=== PATIENT | male | born 1955 | race Caucasian/White ===

== ENCOUNTER 2017-03-22 14:57 | Outpatient (CLI) | payer OTHER ==
[~2017-03-22] VITALS: Ht 185.4 cm; Wt 93.9 kg
[~2017-03-22 14:57] MED LIST: ASPI-999 PO; ASPI81TA57 PO; ATOR40TA70 PO; CYCL10TA9 PO; EZET10TA23 PO; HYDR-3820 PO; IRON150C3 PO; NAPR1TAB25 PO; NAPR220T66 PO; SIMV20TA3 PO; TRAM50TA2 PO
[2017-03-22 15:03] VITALS: BP 146/91
== END 2017-03-22 15:15 | disposition home or self-care (01) ==
LOC: PREOP 14:57
PROVIDERS: ATTEND Podiatrist Foot & Ankle Surgery
DX: Z01.818 Encounter for other preprocedural examination (principal); Z11.2 Encounter for screening for other bacterial diseases; M20.12 Hallux valgus (acquired), left foot; M89.372 Hypertrophy of bone, left ankle and foot; M20.42 Other hammer toe(s) (acquired), left foot
CPT/HCPCS: 87081

== ENCOUNTER 2017-04-14 06:00 | Day surgery (SDC) | payer OTHER ==
--- NOTE | 2017-03-23 14:38 | HISTORY AND PHYSICAL ---
DATE OF SERVICE: DATE OF ADMISSION: Not sure REFERRING PHYSICIAN: Dr. Barbosa HISTORY OF PRESENT ILLNESS: The patient is a 61-year-old white male seen for evaluation in the office on 03/22/2017 for preoperative evaluation. He has increasingly symptomatic left first MTP arthropathies/bunion and a significant second hammertoe deformity for which he is scheduled per Dr. Barbosa for repair. He reports otherwise he feels well. He has no past cardiovascular or pulmonary history. 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 He voices no complaints. PAST MEDICAL HISTORY: Significant for hyperlipidemia for which he takes atorvastatin with no known history for cardiovascular disease. For osteoarthritis of the right hip. He underwent uneventful total hip replacement in September of 2015. In November 2015, he had a laparoscopic removal of a large complex left renal cyst which turned out to be benign. Has had no subsequent problems with flank pain or hematuria, grossly or microscopic. 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 SOCIAL HISTORY: He is with children with history of social alcohol intake and no past history for smoking. He is a salesman for [employer]. MEDICATIONS ON ADMISSION: Include atorvastatin 40 mg daily. He is on no other prescription medication. PHYSICAL EXAMINATION: GENERAL: Reveals a well appearing white male in no acute distress. VITAL SIGNS: Weight 207 pounds was stable. Initial blood pressure 140/90, but at the end of the interview was down to 128/86. NECK: Revealed no JVD, adenopathy or bruits. CHEST: Clear. CARDIOVASCULAR: Regular rate and rhythm without murmur, S3 or S4. EXTREMITIES: Reveal no cyanosis, clubbing or edema. Dorsalis pedis pulses are 2+ and symmetrical. ASSESSMENT: There are no medical contraindications for proceeding with planned bunion surgery of the left first MTP and hammertoe release of the left second toe. Job ID: [id number] DocumentID: [id number] Dictated Date: 03/23/2017 10:15:32 Supervisor [employer] Date: 03/23/2017 11:08:04 Dictated By: JUANA HENAO MD MTDD
[~2017-04-14] VITALS: Ht 185.4 cm; Wt 93.9 kg
--- OUTSIDE RECORDS SUMMARY | 2017-04-14 06:10 | XMS REPORT | Continuity of Care Document ---
Author Author [facility] Organization [facility] Address Unknown Phone Unavailable Allergies Active Description Code Type Severity Reaction Onset Reported/Identified Relationship to Patient Clinical Status Yes No Known Drug Allergies [id number] Drug Allergy Unknown N/A 09/23/2015 Medications There is no data. Problems Date Dx Coded Attending Type Code Diagnosis Diagnosed By 03/26/2014 EARLENE MENJIVAR, JUANA Guzman Ot V72.84 03/26/2014 EARLENE MENJIVAR, JUANA Guzman Ot V72.84 03/26/2014 JUANA HENAO MD Ot V72.84 03/27/2014 EARLENE MENJIVAR, JUANA Guzman Ot 211.3 03/27/2014 EARLENE MENJIVAR, JUANA Guzman Ot 562.10 03/27/2014 EARLENE MENJIVAR, JUANA Guzman Ot V76.51 09/23/2015 TAIWO CHEATHAM DO Ot M16.11 UNILATERAL PRIMARY OSTEOARTHRITIS, RIGHT 09/23/2015 CHAPARRITA TAIWO DENNIS Ot Z01.810 ENCOUNTER FOR PREPROCEDURAL CARDIOVASCUL 09/23/2015 CHAPARRITATAIWO SMITH DO Ot Z01.811 ENCOUNTER FOR PREPROCEDURAL RESPIRATORY 09/23/2015 TAIWO CHEATHAM DO Ot Z01.812 ENCOUNTER FOR PREPROCEDURAL LABORATORY E 09/23/2015 TAIWO CHEATHAM DO Ot Z11.2 ENCOUNTER FOR SCREENING FOR OTHER BACTER 09/25/2015 TAIWO CHEATHAM DO Ot M16.11 UNILATERAL PRIMARY OSTEOARTHRITIS, RIGHT 09/25/2015 CHAPARRITA DOTAIWO Ot Z01.810 ENCOUNTER FOR PREPROCEDURAL CARDIOVASCUL 09/25/2015 TAIWO CHEATHAM DO Ot Z01.811 ENCOUNTER FOR PREPROCEDURAL RESPIRATORY 09/25/2015 TAIWO CHEATHAM DO Ot Z01.812 ENCOUNTER FOR PREPROCEDURAL LABORATORY E 09/25/2015 TAIWO CHEATHAM DO Ot Z11.2 ENCOUNTER FOR SCREENING FOR OTHER BACTER 10/10/2015 TAIWO CHEATHAM DO Ot E78.0 PURE HYPERCHOLESTEROLEMIA 10/10/2015 TAIWO CHEATHAM DO Ot M16.11 UNILATERAL PRIMARY OSTEOARTHRITIS, RIGHT 11/27/2015 UJANA HENAO MD, Ot N28.1 CYST OF KIDNEY, ACQUIRED 11/27/2015 JUANA HENAO MD, Ot R91.1 SOLITARY PULMONARY NODULE 11/28/2015 JUANA HENAO MD, Ot N28.1 CYST OF KIDNEY, ACQUIRED 11/28/2015 JUANA HENAO MD Ot R91.1 SOLITARY PULMONARY NODULE 12/06/2015 JUANA HENAO MD, Ot N28.1 CYST OF KIDNEY, ACQUIRED 01/15/2016 JUANA HENAO MD, Ot N28.1 CYST OF KIDNEY, ACQUIRED 01/15/2016 JUANA HENAO MD, Ot R91.1 SOLITARY PULMONARY NODULE 07/30/2016 JUANA HENAO MD, Ot N28.1 CYST OF KIDNEY, ACQUIRED 07/30/2016 JUANA HENAO MD, Ot R91.1 SOLITARY PULMONARY NODULE 07/30/2016 JUANA HENAO MD Ot N28.1 CYST OF KIDNEY, ACQUIRED 07/30/2016 JUANA HENAO MD, Ot N28.1 CYST OF KIDNEY, ACQUIRED 07/30/2016 JUANA HENAO MD, Ot R91.1 SOLITARY PULMONARY NODULE 07/30/2016 JUANA HENAO MD, Ot N28.1 CYST OF KIDNEY, ACQUIRED 09/02/2016 JUANA HENAO MD, Ot N28.1 CYST OF KIDNEY, ACQUIRED 09/02/2016 JUANA HENAO MD Ot R91.1 SOLITARY PULMONARY NODULE 09/02/2016 JUANA HENAO MD Ot N28.1 CYST OF KIDNEY, ACQUIRED Procedures Code Description Performed By Performed On [id number] REPLACE OF R HIP JT WITH SYNTH SUB, [facility] 10/08/2015 Results Test Result Range [id number] - 11/26/15 10:17 Serum or plasma urea nitrogen measurement (mass/volume) 11 mg/dL 7-18 Serum or plasma creatinine measurement (mass/volume) 0.82 mg/dL 0.60-1.30 Serum or plasma urea nitrogen/creatinine mass ratio 13 NRG Serum or plasma creatinine measurement with calculation of estimated glomerular filtration rate > NRG Methicillin resistant Staphylococcus aureus (MRSA) screening culture - 15:10 Methicillin resistant Staphylococcus aureus (MRSA) screening culture NEG NRG Encounters ACCT No. Visit Date/Time Discharge Status Pt. Type Provider Facility Loc./Unit Complaint [id number] 03/22/2017 14:57:00 03/22/2017 23:59:59 CLS Outpatient FREDY DPM, GABRIELLE Q [facility] PREOP HALLUX RIGIDUS; HAMMERTOE LEFT FOOT [id number] 12/04/2015 16:03:00 12/04/2015 23:59:59 CLS Outpatient JUANA HENAO MD [facility] RAD L KIDNEY CYST [id number] 11/26/2015 10:09:00 11/26/2015 23:59:59 CLS Outpatient JUANA HENAO MD [facility] RAD L PULMONARY NODULE [id number] 10/08/2015 06:13:00 10/10/2015 10:13:00 DIS Inpatient TAIWO CHEATHAM DO [facility] 4TH OSTEOARTHRITIS [id number] 09/23/2015 09:00:00 09/23/2015 11:13:00 DIS Outpatient TAIWO CHEATHAM DO [facility] PREOP OSTEOARTHRITIS [id number] 03/27/2014 07:13:00 03/27/2014 23:59:59 CLS Outpatient JUANA HENAO MD [facility] [id number] 03/22/2014 11:48:00 03/22/2014 23:59:59 CLS Outpatient JUANA HENAO MD [facility] PREOP [id number] 04/16/2017 11:30:00 PEN Preadmit FREDY DPM, GABRIELLE Q [facility] HALLUX RIGIDUS; HAMMERTOES LEFT FOOT
--- OUTSIDE RECORDS SUMMARY | 2017-04-14 06:10 | XMS REPORT | Clinical Summary ---
Author Author [facility] Organization [facility] Address Unknown Phone Unavailable Care Team Providers Care Steeple Jack Name Role Phone PCP Unavailable Source Comments Some departments are not documenting in the electronic medical record. If you do not see the information that you expected, contact Release of Information in the Health Information Management department at [phone] for further assistance in locating additional records.[facility] Allergies No Known Allergies Current Medications Prescription Sig. Disp. Refills Start End Date Status Date NAPROXEN SODIUM (ALEVE Take by mouth. Active PO) vitamins, B complex tab Take 1 Tab by mouth Active daily. ACETAMINOPHEN (TYLENOL Take by mouth as Needed. Active PO) aspirin EC 81 mg tablet Take 81 mg by mouth Active daily. Take with food. cyclobenzaprine Take 10 mg by mouth three Active (FLEXERIL) 10 mg tablet times daily as needed for Muscle Cramps. atorvastatin (LIPITOR) 40 Take 40 mg by mouth Active mg tablet daily. senna/docusate Take 1 Tab by mouth twice 30 Tab 0 02/15/20 Active (SENOKOT-S) 8.6/50 mg daily. While taking pain 16 tablet pills HYDROcodone/acetaminophen Take 1-2 Tabs by mouth 30 Tab 0 02/15/20 Active (NORCO) 5-325 mg tablet every 4 hours as needed 16 for Pain Earliest Fill Date: 02/15/16 levoFLOXacin (LEVAQUIN) Take 1 Tab by mouth 5 Tab 0 02/16/20 Active 500 mg tablet daily. 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 Appears separate from left kidney, but possibly related to ureter. Overall inadequately imaged on outside scans. 02/14/16: Left robotic retroperitoneal cyst excision. Final pathology: Final Diagnosis: A. Squamous mucosa and soft tissue, "left retroperitoneal cyst wall", resection: Benign squamous-lined cyst with a thick wall showing fibrosis and microcalcifications. Reactive changes are present with foreign body giant cell reaction. There is no evidence of malignancy. Last Assessment & Plan: Patient doing well and recovering well. Pathology discussed with the patient who expressed understanding. A copy was given to the patient. The mass did extensively alter the course of the ureter, so I have recommended that he folow-up in 6 months for a repeat ultrasound and assessment. Patient agrees. -- May start to increase physical activity -- Copy of pathology given to patient -- All questions answered -- Warnings given to patient who expressed understanding -- F/U 6 months with renal ultrasound and labs prior Immunizations Name Dates Previously Given Next Due Flu Vaccine 02/15/2016 Quadrivalent=>3 Yo (Preservative Free) Family History Medical History Relation Name Comments Diabetes Father Heart Attack Father Heart Disease Father Hypertension Father Diabetes Mother Hypertension Mother Relation Name Status Comments Father Mother Social History Tobacco Use Types Packs/Day Years Used Date Never Smoker Smokeless Tobacco: Never Used Alcohol Use Drinks/Week oz/Week Comments Yes 0 Standard 0.0 socially drinks or equivalent Sex Assigned at Date Recorded Not on file Last Filed Vital Signs Vital Sign Reading Time Taken Blood Pressure 142/91 03/05/2016 3:23 PM [employer] Pulse 93 03/05/2016 3:23 PM [employer] Temperature 36.5 C (97.7 F) 02/15/2016 10:59 AM CDT Respiratory Rate - - Oxygen Saturation 97% 02/15/2016 10:59 AM CDT Inhaled Oxygen - - Concentration Weight 89.7 kg (197 lb 12.8 oz) 03/05/2016 3:23 PM [employer] Height 185.4 cm (6' 1") 03/05/2016 3:23 PM [employer] Body Mass Index 26.1 03/05/2016 3:23 PM [employer] Plan of Treatment Health Maintenance Due Date Last Done Comments HEPATITIS C SCREENING 1955 PHYSICAL (COMPREHENSIVE) 08/28/1963 EXAM PERTUSSIS VACCINE 08/28/1967 TETANUS VACCINE 1973 COLORECTAL CANCER 2006 SCREENING SHINGLES VACCINE 2016 INFLUENZA VACCINE 11/17/2016 02/15/2016 Results Not on filefrom Last 3 Months
[2017-04-14] MEDS ORDERED: CYCL5TAB PO (06:41)
[2017-04-14] MEDS: LACTATED RINGERS 1,000 ML IV PRN ×2 (06:42→09:35)
[2017-04-14 06:44] VITALS: BP 134/96
[2017-04-14] MEDS ORDERED: ceFAZolin INJECTION 1,000 MG in NS (IVPB) 50 ML IV ONE (06:45)
[2017-04-14] MEDS ORDERED: fentaNYL INJECTION 100 MCG/2 ML AMP ONE (07:00)
[2017-04-14] MEDS ORDERED: LIDOCAINE JELLY 2% (XYLOCAINE) 5 ML TUBE ONE (07:27)
[2017-04-14] MEDS ORDERED: MIDAZOLAM 2 MG/2 ML (VERSED) VIAL ONE (07:27)
[2017-04-14] MEDS ORDERED: ROCURONIUM 50 MG/5 ML (ZEMURON) VIAL IV ONE (07:27)
[2017-04-14] MEDS ORDERED: ONDANSETRON 4 MG/2 ML (SDV) Z0FRAN ONE (07:27)
[2017-04-14] MEDS ORDERED: LACTATED RINGERS 1,000 ML IV ONE (07:27)
[2017-04-14] MEDS ORDERED: LIDOCAINE PF 2% 5 ML (XYLOCAINE) VIAL ONE (07:27)
[2017-04-14] MEDS ORDERED: proPOfol 200 MG/20 ML (DIPRIVAN) VIAL IV ONE (07:27)
--- NOTE | 2017-04-14 07:32 | Progress Note-Pre Operative ---
Pre-Operative Progress Note H&P Reviewed The H&P was reviewed, patient examined and no changes noted. Date Seen by Provider: Apr 14, 2017 Time Seen by Provider: 07:31 Date H&P Reviewed: Apr 14, 2017 Time H&P Reviewed: 07:31 Pre-Operative Diagnosis: Hallux Valgus, Hammertoe 2nd, Hypertrophic 2nd metatarsal, all left GABRIELLE DANIEL DPM Apr 14, 2017 7:32 am
[2017-04-14] MEDS ORDERED: BUPIVACAINE 0.5% 30 ML (SENSORCAINE) VIAL ONE (08:15)
[2017-04-14] MEDS ORDERED: DEXAMETHASONE 10 MG/ML (DECADRON) 1 ML VIAL ONE (08:15)
[2017-04-14] MEDS ORDERED: PHENYLEPHRINE 100 MCG/ML 10 ML (ANESTHESIA) SYR ONE (09:00)
[2017-04-14] MEDS ORDERED: SEVOFLURANE (ULTANE) 15 ML INHAL SOLN ONE (09:00)
[2017-04-14] MEDS ORDERED: HYDROcodone/APAP 5 MG/325 MG (LORTAB) TAB PO PRN (09:30)
[2017-04-14] MEDS ORDERED: ONDANSETRON 4 MG/2 ML (SDV) Z0FRAN IVP PRN ×2 (09:30→09:45)
[2017-04-14] MEDS ORDERED: LACTATED RINGERS 1,000 ML IV SCH (09:30)
--- NOTE | 2017-04-14 09:30 | Progress Note-Post Operative ---
Post-Operative Progess Note Surgeon (s)/Rocket Engine Tester (s) Surgeon GABRIELLE DANIEL DPM Rocket Engine Tester: none Pre-Operative Diagnosis Hallux Valgus, Hammertoe 2nd, Hypertrophic 2nd metatarsal, all left Post-Operative Diagnosis same Procedure & Operative Findings Date of Procedure 04/14/17 Procedure Performed/Findings Modified Pawan-Ronny bunionectomy, Reduction of 2nd Hammertoe, 2nd Metatarsal Osteotomy, all left Anesthesia Type General Estimated Blood Loss Estimated blood loss (mL): Minimal Specimens/Packing Specimens Removed None GABRIELLE DANIEL DPM Apr 14, 2017 09:30
[2017-04-14] MEDS ORDERED: ACHD5005 PO (09:34)
[2017-04-14] MEDS ORDERED: CEPH500C PO (09:34)
[2017-04-14] MEDS ORDERED: MEPERIDINE (DEMEROL) INJ 50 MG/ML IVP PRN (09:45)
[2017-04-14] MEDS ORDERED: morphine INJ 10 MG/ML 1ML (SYR OR VIAL) IVP PRN (09:45)
[2017-04-14 10:20] VITALS: BP 129/95
[2017-04-14 10:50] VITALS: BP 143/102
--- NOTE | 2017-04-14 10:53 | Diagnostic Imaging Report ---
EXAMINATION: Two views of the left foot. INDICATION: Postoperative evaluation. FINDINGS: There are osteotomies with internal fixation involving the neck of the first and second metatarsals and the proximal phalanx of the great toe. There is also an osteotomy at the head of the proximal phalanx of the second toe and a fusion K wire through the interphalangeal joints. The bone alignment is satisfactory. Calcaneal spurs are seen. IMPRESSION: Postoperative changes in the great and second toes in good alignment. Dictated by: Dictated on workstation # [id number]
[2017-04-14 11:20] VITALS: BP 148/102
[2017-04-14 11:30] VITALS: BP 148/102
--- NOTE | 2017-04-14 16:23 | OPERATIVE REPORT ---
DATE OF SERVICE: 04/14/2017 SURGEON: Josselyn Barbosa DPM PREOPERATIVE DIAGNOSES: 1. Hallux abductovalgus metatarsus primus varus, left. 2. Hypertrophic second metatarsal, left. 3. Hammer digit syndrome, left second toe. POSTOPERATIVE DIAGNOSES: 1. Hallux abductovalgus metatarsus primus varus, left. 2. Hypertrophic second metatarsal, left. 3. Hammer digit syndrome, left second toe. PROCEDURE: 1. Modified Pawan-Ronny bunionectomy, left. 2. Second metatarsal osteotomy with screw fixation. 3. Reduction of hammertoe, left second digit. WOUND CLASS: Clean. ANESTHESIA: General. HEMOSTASIS: Pneumatic thigh tourniquet at 300 mmHg. INDICATIONS: This is a 61-year-old male who presents complaining of painful bunion and hammertoe, left foot. Conservative therapy has met with unsatisfactory results and the patient is agreeable to surgical intervention after risks and complications were discussed at length. No guarantees were extended to the patient and he is willing to proceed. DESCRIPTION OF PROCEDURE: The patient was brought back to the operating table, placed in secure supine position. The general anesthetic was then induced. Appropriate timeout was performed. The left foot was then prepped and draped in normal sterile manner after a tourniquet was applied to the left lower extremity over several layers of padding. The left foot was then elevated and allowed to exsanguinate, after which the tourniquet was inflated to 300 mmHg. Attention was then directed to the dorsal aspect of the left first metatarsophalangeal joint where a 6 cm longitudinal linear incision was created. The incision was deepened in the same plane with great care to identify and retract all vital neurovascular structures. When necessary, blood vessels were cauterized as encountered. The incision was deepened down to the capsular tissue where a longitudinal capsulotomy was performed. Capsular tissue was reflected mediolaterally exposing the hypertrophic medial eminence of the first metatarsal head, which was resected utilizing power sagittal saw. Next, blunt dissection was carried out into the first intermetatarsal space where a lateral release was performed. The conjoint tendon of the adductor hallucis was released as well as a lateral capsulorrhaphy and a fibular sesamoidal ligament release was performed. The hallux was then forcibly adducted releasing any additional fibers holding it in its abnormal position. Attention was redirected to the medial aspect of the first metatarsal where a Chevron-type osteotomy was performed allowing the capital fragment to translocate laterally and was fixated in its corrected position with a 0.062 threaded K-wire driven from dorsal proximal to plantar distal across the osteotomy. The wound was flushed with copious amounts of normal saline and the head of the first metatarsal was further contoured and smoothed with a power sagittal saw and power janelle. Excellent range of motion was appreciated at the left first metatarsophalangeal joint. There still remained some lateral deviation with the hallux and it was then decided that an Ronny type osteotomy was then to be performed. Subperiosteal dissection was carried out to the diaphysis of the proximal phalanx of the left hallux. Next, a power sagittal saw was utilized to create a wedge of bone resection with the base medial and lateral cortices held intact. Once the wedge of bone was resected and the gap closed, good realignment of the left hallux was appreciated. Two missile control pilot holes were created at the dorsal medial aspect of the osteotomy allowing a 28-gauge monofilament wire to pass through the missile control pilot holes securing the osteotomy in a closed position. Excellent bony apposition and fixation was appreciated. At this time, the wound was flushed with copious amounts of normal saline and closure was then performed in layers. Deep closure was performed with 3-0 Vicryl, superficial with 4-0 Vicryl, skin closed with 4-0 Prolene in a horizontal mattress type stitch. Attention was then directed to dorsal aspect of left second ray where a 5 cm longitudinal linear incision was created from the distal diaphysis of the second metatarsal to the distal interphalangeal joint of the left second toe. The incision was deepened in the same plane with great care to identify and retract all vital neurovascular structures. All the necessary blood vessels were cauterized as encountered. The incision was deepened down to the capsule and extensor tendon. A Z slide lengthening of the extensor tendon overlying the proximal phalanx was performed allowing the extensor tendon to be reflected proximally and distally. Release of the extensor alicia was performed over the metatarsophalangeal joint area exposing the second metatarsophalangeal joint where a dorsal capsulorrhaphy and a release of the medial lateral collateral ligaments were performed. This allowed the proximal phalanx to come down into rectus alignment. Next, a Lucio type osteotomy was then performed. The capital fragment was translocated proximally and fixated in its corrected position utilizing a 2.0 snap-off screw of 12 mm in length. Excellent bony apposition fixation was appreciated at this time. The remaining head of the second metatarsal was further contoured and smoothed with a rongeur and hand rasp. The wound was flushed once again with normal saline. Attention was then directed to the left second toe where hammertoe reduction was performed. The medial and lateral collateral ligaments as well as the dorsal capsulorrhaphy was performed to the proximal interphalangeal joint. The head of the proximal phalanx was fashioned into a peg with power sagittal saw and a power bur and a hole was created to the base of the middle phalanx with the power bur. Next, a 0.054 threaded K-wire was passed through the left second digit holding the digit in a rectus alignment. The end of the K-wire was cut and a protective ball placed over the wire. The wound was flushed with copious amounts of normal saline. Closure was then performed in layers. Deep closure was performed with 3-0 Vicryl, superficial with 4-0 Vicryl, skin closure with 4-0 Prolene in a horizontal mattress type stitch. Postoperative injection consisted of 20 mL of 0.5% Marcaine injected in a local infusion to the surgical site with additional 10 mg of dexamethasone injected into the first intermetatarsal space, left foot. Tourniquet was released noting appropriate capillary refill time to all digits of the left foot. Postoperative dressing consisted of Betadine soaked Adaptic, sterile 4 x 4, sterile Kerlix all secured with a Coban wrap. The patient tolerated the anesthesia and procedure well, was transported from the operating room to the recovery area with vital signs stable and vascular status intact to all digits of the left foot. The patient is to follow up in my office in 10 days' period of time or sooner if necessary. He is to be nonweightbearing to the left forefoot with heel contact only. I will see the patient sooner if necessary. Job ID: [id number] DocumentID: [id number] Dictated Date: 04/14/2017 09:42:32 [employer] Driver Date: 04/14/2017 16:23:03 Dictated By: FAIZA QUIROZ
== END 2017-04-14 11:30 | disposition home or self-care (01) ==
LOC: SDC 06:00
PROVIDERS: ATTEND Podiatrist Foot & Ankle Surgery
DX: M20.42 Other hammer toe(s) (acquired), left foot (principal); M20.12 Hallux valgus (acquired), left foot; M89.372 Hypertrophy of bone, left ankle and foot; Z11.2 Encounter for screening for other bacterial diseases; E78.5 Hyperlipidemia, unspecified; M16.11 Unilateral primary osteoarthritis, right hip; Z85.828 Personal history of other malignant neoplasm of skin; Z79.899 Other long term (current) drug therapy
CPT/HCPCS: 73620

== ENCOUNTER → 2021-01-21 | Outpatient (CLI) | payer OTHER ==
[~2021-01-21] MED LIST changes: +ACET500P24 PO; +ACHD5005 PO; +ACHYD1T PO; +CEPH500C PO; +CYCL5TAB PO; -HYDR-3820 PO; -TRAM50TA2 PO; +TRM50T PO
--- NOTE | 2021-01-21 16:54 | Diagnostic Imaging Report ---
PROCEDURE: US carotid duplex, bilateral. TECHNIQUE: Multiple real-time grayscale images were obtained over the carotid arteries in various projections, bilaterally. Additional spectral analysis and color Doppler duplex images were also obtained. INDICATION: Right retinal artery embolism, vascular calcifications. COMPARISON: None available. FINDINGS: Peak systolic velocities within the bilateral common carotid arteries are elevated at just above 150 cm/s. However, the peak systolic velocities within the bilateral internal carotid arteries and external carotid arteries are within normal limits. Additionally, the bilateral internal carotid artery to common carotid artery ratios are within normal limits. Antegrade flow within the bilateral vertebral arteries. IMPRESSION: No evidence of hemodynamically significant stenosis. Antegrade flow within the bilateral vertebral arteries. Increased velocities within the bilateral common carotid arteries, which can be seen with hypertension. Parameters based on the consensus panel Villegas-Scale and Doppler ultrasound criteria published February 2003, Radiology, Volume 229. DOPPLER (peak systolic velocity M/S Right Left CCA 1.5 1.4 ICA Proximal .81 .81 ICA Mid .78 .46 ICA Distal .63 .85 RATIO .53 .60 ECA 1.1 1.2 VERT .73 .66 Dictated by: Dictated on workstation # [id number]
== END ==
LOC: RAD 14:30
PROVIDERS: ATTEND Internal Medicine
DX: H34.9 Unspecified retinal vascular occlusion (principal); I10 Essential (primary) hypertension
CPT/HCPCS: 93880

== ENCOUNTER 2021-01-24 05:34 | Outpatient (CLI) | payer OTHER ==
[~2021-01-24] VITALS: Ht 185.5 cm; Wt 95.3 kg
[~2021-01-24 05:34] MED LIST changes: -ACET500P24 PO
[2021-01-24] MEDS ORDERED: ACET500P24 PO (14:03)
[2021-01-24] MEDS ORDERED: NAPR1TAB25 PO (14:03)
== END 2021-01-27 08:53 | disposition home or self-care (01) ==
LOC: PREOP 05:34
PROVIDERS: ATTEND Internal Medicine
DX: Z01.818 Encounter for other preprocedural examination (principal)

== ENCOUNTER → 2021-01-29 | Outpatient (CLI) | payer OTHER ==
[~2021-01-29] MED LIST changes: +ACET500P24 PO; +LOSA1TAB23 PO; +LOSA50TA63 PO
== END ==
LOC: CARD 14:30
PROVIDERS: ATTEND Internal Medicine
DX: I51.7 Cardiomegaly (principal); H34.9 Unspecified retinal vascular occlusion
CPT/HCPCS: 93306

== ENCOUNTER 2021-01-31 09:34 | Day surgery (SDC) | payer OTHER ==
--- NOTE | 2021-01-24 08:46 | HISTORY AND PHYSICAL ---
DATE OF SERVICE: COLONOSCOPY HISTORY AND PHYSICAL DATE OF ADMISSION: 01/31/2021. HISTORY OF PRESENT ILLNESS: The patient is a 65-year-old white male, who came in for evaluation of right branch retinal artery occlusion. He has had no known history of coronary artery disease or past thromboembolic disease and no known previous history of CVA. He reports that he had been feeling well, but updating family history, his brother and his brother's son were both diagnosed with colon cancer; the son in 40s, brother in his 50s. It has been seven years since the patient's last colonoscopy, at which time, one tubular adenoma was removed from the proximal ascending colon and one from the mid sigmoid colon. For this reason, he is being set up for screening colonoscopy. The patient has no past smoking or drinking history and has been feeling well. He noted some blurring to his vision on the right, a little over a month ago that he attributed to cataracts, but went to see his registered midwife, who noted the retinal occlusion. PHYSICAL EXAMINATION: GENERAL: Revealed a white male, appeared to be in no acute distress. HEENT: Unremarkable. NECK: Revealed no JVD, adenopathy or bruits. CHEST: Clear to auscultation. CARDIOVASCULAR: Reveals a regular rate and rhythm without murmur, S3 or S4. EXTREMITIES: Reveal no cyanosis, clubbing or edema. ASSESSMENT AND PLAN: 1. Right branch retinal artery occlusion. We will obtain a carotid duplex evaluation to initiate workup as well as a chemistry panel, lipid panel, CBC and a TSH with further recommendations pending blood test and carotid artery results, likely strong consideration for statin therapy. 2. Family history for colon cancer. The patient is being set up for a screening colonoscopy on 01/31/2021. Prep instructions with Suprep kit were given and questions were answered. Job ID: [id number] DocumentID: [id number] Dictated Date: 01/20/2021 16:51:33 Tape Weaver Date: 01/20/2021 17:12:04 Dictated By: JUANA HENAO MD
[~2021-01-31] VITALS: Ht 185.5 cm; Wt 95.3 kg
[~2021-01-31 09:34] MED LIST changes: -LOSA1TAB23 PO; -LOSA50TA63 PO
[2021-01-31] MEDS ORDERED: LACTATED RINGERS 1,000 ML IV STA (09:43)
[2021-01-31 09:45] VITALS: BP 155/102
[2021-01-31] MEDS ORDERED: LIDOCAINE JELLY 2% 6 ML SYRINGE MM PRN (09:45)
[2021-01-31] MEDS ORDERED: LACTATED RINGERS 1,000 ML IV ONE (09:50)
[2021-01-31] MEDS ORDERED: LOSA50TA63 PO (10:03)
[2021-01-31] MEDS ORDERED: MIDAZOLAM 2 MG/2 ML (VERSED) VIAL ONE (10:24)
--- NOTE | 2021-01-31 10:24 | Pre-Op Note & Conscious Sedat ---
Pre-Operative Progress Note H&P Reviewed The H&P was reviewed, patient examined and no changes noted. Date H&P Reviewed: Jan 31, 2021 Time H&P Reviewed: 10:00 Conscious Sedation Pre-Proced ASA Score 2 For ASA 3 and 4: Consider anesthesia and medical clearance. Also, for patients with a history of failed moderate sedation consider anesthesia. Airway Lungs Heart ASA score ASA 1: a normal healthy patient ASA 2: a patient with a mild systemic disease (mid diabetes, controlled hypertension, obesity ASA 3: a patient with a severe systemic disease that limits activity (angina, COPD, prior Myocardial infarction) ASA 4: a patient with an incapacitating disease that is a constant threat to life (CHF, renal failure) ASA 5: a moribund patient not expected to survive 24 hrs. (ruptured aneurysm) ASA 6: a declared brain- patient whose organs are being harvested. For emergent operations, add the letter E after the classification Mallampati Classification Grade 2 Sedation Plan Analgesia, Amnesia, Plan communicated to team members, Discussed options with patient/fam, Discussed risks with patient/fam The patient is an appropriate candidate to undergo the planned procedure, sedation, and anesthesia. The patient immediately re-assessed prior to indication. JUANA HENAO MD Jan 31, 2021 10:24
[2021-01-31] MEDS ORDERED: PROPOFOL INJECTION 50 ML IV ONE (10:25)
[2021-01-31 11:05] VITALS: BP 108/73
[2021-01-31 11:10] VITALS: BP 143/79
[2021-01-31] MEDS ORDERED: LOSA1TAB23 PO (11:11)
[2021-01-31 11:30] VITALS: BP 137/98
[2021-01-31 11:45] VITALS: BP 137/98
--- NOTE | 2021-01-31 12:53 | Anesthesia-General Post-Op ---
MAC Patient Condition Mental Status/LOC: Same as Preop Cardiovascular: Satisfactory Nausea/Vomiting: Absent Respiratory: Satisfactory Pain: Controlled Complications: Absent Post Op Complications Complications None Follow Up Care/Instructions Patient Instructions None needed. Anesthesiology Discharge Order Discharge Order Patient is doing well, no complaints, stable vital signs, no apparent adverse anesthesia problems. No complications reported per nursing. PAULA KIRKLAND CRNA Jan 31, 2021 12:53
--- NOTE | 2021-01-31 15:02 | OPERATIVE REPORT ---
DATE OF SERVICE: COLONOSCOPY SUMMARY INDICATION FOR THE PROCEDURE: Family history for colon cancer screening. DESCRIPTION OF PROCEDURE: The patient was placed in the left lateral decubitus position. Prior to undergoing colonoscopy, digital rectal evaluation was performed. Anal sphincter tone was normal and the perianal reflexes intact. The prostate is mildly enlarged, anodular and nontender to digital inspection. The colonoscope was then inserted into the rectum and under direct visualization advanced to cecum. The cecum was identified by identification of the cecal strap. Photographic documentation was obtained. Careful inspection was made as the colonoscope was withdrawn. Quality of prep was good. FINDINGS: There was no evidence for internal or external hemorrhoids. The rectum, sigmoid colon, descending colon, splenic flexure, transverse colon, hepatic flexure, ascending colon and cecum were unremarkable with no evidence for neoplasia. ASSESSMENT: Normal colonoscopy to the cecum. Considering family history, would advocate repeat screening colonoscopy in 5 years. The patient has a history of hypertension with recent right branch retinal vein occlusion and an echo summary that revealed LVH and diastolic dysfunction with normal systolic function and no embolic sites. No other abnormalities being noted. Blood pressures have been in the 140-150/90 range at home, indicative control that is not adequate. We are switching him from 50 mg of losartan daily to losartan HCT 100/25. I will see him back in 1 month and repeat basic metabolic panel at that time. This was discussed with the patient and his . 15 minutes extra time spent in addition to addressing hypertension with a recent right branch retinal vein occlusion and need for more adequate blood pressure control, non-medication measures for hypertension control were addressed as well. Job ID: [id number] DocumentID: [id number] Dictated Date: 01/31/2021 11:15:09 Brake Operator Sheet Metal Date: 01/31/2021 15:01:38 Dictated By: JUANA HENAO MD [facility]egan
== END 2021-01-31 11:45 | disposition home or self-care (01) ==
LOC: ENDO 09:34
PROVIDERS: ATTEND Internal Medicine
DX: Z12.11 Encounter for screening for malignant neoplasm of colon (principal); I11.9 Hypertensive heart disease without heart failure; I69.398 Other sequelae of cerebral infarction; H34.231 Retinal artery branch occlusion, right eye; Z80.0 Family history of malignant neoplasm of digestive organs; Z79.82 Long term (current) use of aspirin; Z79.899 Other long term (current) drug therapy

== ENCOUNTER 2021-06-13 05:42 | Outpatient (CLI) | payer OTHER ==
[~2021-06-13] VITALS: Ht 182.9 cm; Wt 92.2 kg
[~2021-06-13 05:42] MED LIST changes: +LOSA1TAB23 PO; +LOSA50TA63 PO
[2021-06-17] MEDS ORDERED: ACET-2267 PO (11:27)
== END 2021-06-17 11:30 | disposition home or self-care (01) ==
LOC: PREOP 05:42
PROVIDERS: ATTEND Specialist
DX: Z01.818 Encounter for other preprocedural examination (principal)

== ENCOUNTER 2021-06-20 07:55 | Day surgery (SDC) | payer OTHER ==
[~2021-06-20] VITALS: Ht 182.9 cm; Wt 92.2 kg
[~2021-06-20 07:55] MED LIST changes: +ACET-2267 PO
[2021-06-20] MEDS ORDERED: POVIDONE (BETADINE) OPHTH SOLN 5% 30 ML OP ONE (08:15)
[2021-06-20] MEDS ORDERED: LIDOCAINE PF 1% 2 ML VIAL IR PRN (08:15)
[2021-06-20] MEDS ORDERED: TIMOLOL MALEATE 0.5% 5 ML (TIMOPTIC) BTL OU PRN (08:15)
[2021-06-20] MEDS ORDERED: MOXIFLOXACIN OPHTH SOLN 5 MG/ML 0.3 ML SYRINGE OP ONE (08:15)
[2021-06-20] MEDS: TETRACAINE 0.5% OPHTH SOLN 4 ML BTL (SINGLE DOSE ONLY) OU PRN ×4 (08:18→08:33)
[2021-06-20] MEDS: PHENYLEPHRINE 10% OPHTH (NEO-SYN) 5 ML BTL OU SCH ×3 (08:23→08:33)
[2021-06-20] MEDS: TROPICAMIDE 1% OPH SOLN (MYDRIACYL) 15 ML BTL OP SCH ×3 (08:23→08:33)
[2021-06-20 08:29] VITALS: BP 129/92
--- NOTE | 2021-06-20 08:55 | Ophthalmologist Pre-Op Note ---
Pre-Operative Progress Note H&P Reviewed The H&P was reviewed, patient examined and no changes noted. Date H&P Reviewed: Jun 20, 2021 Time H&P Reviewed: 08:55 Pre-Op Dx Cataract, Left Eye GERALD MENJIVAR MD Jun 20, 2021 08:55
[2021-06-20] MEDS ORDERED: MIDAZOLAM 2 MG/2 ML (VERSED) VIAL ONE (08:59)
--- NOTE | 2021-06-20 09:16 | Ophthalmology Operative Report ---
Cataract removal/placement IOL PREOPERATIVE DIAGNOSIS: Cataract Left Eye POSTOPERATIVE DIAGNOSIS: Cataract Left Eye PROCEDURE: Cataract removal and placement of posterior chamber implant, left eye SURGEON: Kahlil Menjivar ANESTHESIA: Topical with sedation COMPLICATIONS: None ESTIMATED BLOOD LOSS: Minimal DESCRIPTION OF PROCEDURE: After proper informed consent was obtained, the patient, a 65 male, was taken to the Operating Room and the left eye was anesthetized with tetracaine. The left eye was then prepped and draped in the usual manner. A wire lid speculum was placed. A paracentesis was made at the left hand position. Preservative free lidocaine was injected into the anterior chamber followed by viscoelastic. A clear corneal incision was made in the temporal position. A capsulorrhexis was preformed and the central nuclear and cortical material were removed. The posterior capsule was polished and an Enrico 22.5 [id number] was placed into the capsular bag. The residual viscoelastic was aspirated and balanced saline solution was injected into the anterior chamber. Moxifloxacin was injected into the anterior chamber. The wound was checked and found to be water tight. The patient tolerated the procedure well without complications. KAHLIL MENJIVAR MD Jun 20, 2021 09:16
[2021-06-20 09:22] VITALS: BP 118/81
[2021-06-20] MEDS ORDERED: acetaZOLAMIDE ER 500 MG CAP (DIAMOX SEQUELS) PO ONE (10:30)
--- NOTE | 2021-06-20 11:56 | Anesthesia-General Post-Op ---
MAC Patient Condition Mental Status/LOC: Same as Preop Cardiovascular: Satisfactory Nausea/Vomiting: Absent Respiratory: Satisfactory Pain: Controlled Complications: Absent Post Op Complications Complications None Follow Up Care/Instructions Patient Instructions None needed. Anesthesiology Discharge Order Discharge Order Patient is doing well, no complaints, stable vital signs, no apparent adverse anesthesia problems. No complications reported per nursing. TAO SHAW CRNA Jun 20, 2021 11:56
== END 2021-06-20 09:25 | disposition home or self-care (01) ==
LOC: SDC 07:55
PROVIDERS: ATTEND Specialist
DX: H25.9 Unspecified age-related cataract (principal)
CPT/HCPCS: 66984; V2632

== ENCOUNTER → 2021-10-24 | Outpatient (CLI) | payer OTHER | LOC: CARD 13:01 | PROVIDERS: ATTEND Nurse Practitioner Family | DX: I45.10 Unspecified right bundle-branch block (principal); I44.4 Left anterior fascicular block | CPT/HCPCS: 93005 ==

== ENCOUNTER → 2021-10-30 | Outpatient (CLI) | payer MEDICARE, OTHER | LOC: CARD 09:00 | PROVIDERS: ATTEND Nurse Practitioner Family | DX: I99.8 Other disorder of circulatory system (principal); I49.9 Cardiac arrhythmia, unspecified | CPT/HCPCS: 93225; 93226 ==

== ENCOUNTER → 2021-12-18 | Outpatient (CLI) | payer OTHER ==
[~2021-12-18] MED LIST changes: +CATHETER FLUSH 10 ML SYR IV PRN; +HOLD METFORMIN - RECEIVED CONTRAST 20 ML VIAL IV SCH; +IOHEXOL 350 MG/ML 100 ML (OMNIPAQUE 350) VIAL IV ONE; +NS 100 ML (IVPB) BAG IV ONE
[2021-12-18 08:04] LABS: CREATININE SERUM 0.88 MG/DL (0.60-1.30)
--- NOTE | 2021-12-18 10:43 | Diagnostic Imaging Report ---
CLINICAL INDICATION: Patient with retinal vascular occlusion. Exams: 1: Head CT with and without IV contrast. Auto Exposure Controls were utilized during the CT exam to meet ALARA standards for radiation dose reduction. 2: CT angiogram of the head and neck performed with 75 cc of Omnipaque 350 IV contrast. Sagittal and coronal MIP reformations were created for better visualization of vascular anatomy. CT angiogram was post-processed using RAPID LVO detection to include quantitative measurements of cerebral blood flow and automated results notification to the stroke and/or neurointerventional team. Comparison: Ultrasound of the carotid arteries dated 01/21/2021.. Findings: Head CT: There is subtle linear-like area of low-density involving the left cerebellar hemisphere best seen on the axial CT scan the head and coronal reformatted images of the CTA of the neck which may represent a small area of encephalomalacia or cleft. Otherwise, there is no evidence of acute cerebral infarct, intracranial hemorrhage, or gross mass effect. There is no abnormal IV contrast enhancement. The brain parenchymal volume appears appropriate for patient's age. There is normal lucas-white matter distinction. There is no significant midline shift or herniation. There is no evidence of hydrocephalus. The basal cisterns are unremarkable. The skull, extracranial soft tissue, and orbits are unremarkable. The paranasal sinuses are unremarkable. Temporal bones show no significant abnormality. CT Angiogram: There is dense contrast bolus seen within the right subclavian vein and superior vena cava which causes streak artifact obscuring portions of the aortic arch and proximal great vessels. Of note, the aortic arch is not completely imaged and the origin of the brachiocephalic artery, left common carotid artery are not completely imaged and cannot be visualized. Bovine arch is seen with common origin of the right brachiocephalic artery and left common carotid artery. The left cervical vertebral artery arises from the junction of the base of the left subclavian artery and aortic arch. The visualized portions of the brachiocephalic artery, bilateral subclavian arteries, bilateral cervical vertebral arteries, and bilateral ECA are patent. Hairpin tortuosity of the mid cervical right ICA is noted. The petrous, cavernous, and supraclinoid ICA are patent. The bilateral ACAs and distal branches are patent. The bilateral MCAs and distal branches are patent. The bilateral cervical vertebral arteries are patent. The intradural bilateral vertebral arteries are patent. The right PICA and left ICA PICA are patent. The basilar artery and bilateral superior cerebellar arteries are patent. The bilateral steel worker and distal branches are patent. The dural venous sinuses are patent. The neck soft tissue structures are unremarkable. Visualized upper lung louie are clear. There is cervical spine degenerative spurs. IMPRESSION: 1: There is a subtle linear-like area of low-density involving left cerebellar which may represent a cleft or area of encephalomalacia. 2: There is no definite CT evidence of acute intracranial process. There is no abnormal IV contrast enhancement. 3: CT angiogram of the [place] and neck are unremarkable, as visualized. Dictated by: Dictated on workstation # [id number]
== END ==
LOC: RAD 07:16
PROVIDERS: ATTEND Internal Medicine Cardiovascular Disease
DX: H34.9 Unspecified retinal vascular occlusion (principal)
CPT/HCPCS: 36415; 70496; 70498; 82565; 84520

== ENCOUNTER → 2021-12-30 | Outpatient (CLI) | payer OTHER ==
[~2021-12-30] MED LIST changes: -CATHETER FLUSH 10 ML SYR IV PRN; -HOLD METFORMIN - RECEIVED CONTRAST 20 ML VIAL IV SCH; -IOHEXOL 350 MG/ML 100 ML (OMNIPAQUE 350) VIAL IV ONE; -NS 100 ML (IVPB) BAG IV ONE; +REGADENOSON 0.4 MG/5 ML SYR (LEXISCAN) IV ONE
[2021-12-30 09:03] VITALS: BP 145/93
--- NOTE | 2021-12-30 17:32 | STRESS TEST ---
DATE OF SERVICE: 12/30/2021 RESTING AND POST REGADENOSON TECHNETIUM-99M TETROFOSMIN SPECT CT IMAGING ORDERING PHYSICIAN: Dr. Hayward. PRIMARY PHYSICIAN: Dr. Rhodes. CLINICAL DIAGNOSIS: Shortness of breath. Baseline images were carried out after injection of 10.88 mCi of technetium-99m Tetrofosmin. This was followed by 0.4 mg regadenoson and 30.4 mCi of technetium-99m Tetrofosmin for stress imaging. The electrocardiogram showed sinus rhythm at baseline. The electrocardiogram did not change significantly with the regadenoson infusion. The patient noted some shortness of breath following regadenoson infusion, which resolved in a few minutes. Review of images at rest and following stress indicates diminished count uptake in the inferior wall, both at rest and following regadenoson infusion. This appears to be diaphragmatic attenuation. Gated images show normal global left ventricular systolic function with normal regional wall motion, including the inferior wall of the left ventricle. Left ventricular ejection fraction is calculated to be 63%. CONCLUSIONS: 1. No evidence of any significant myocardial ischemia or infarction on this study. 2. Normal regional wall motion. 3. Normal global left ventricular systolic function with a calculated ejection fraction of 63%. Job ID: [id number] DocumentID: [id number] Dictated Date: 12/30/2021 14:13:09 Microbiology Supervisor Date: 12/30/2021 17:31:35 Dictated By: CHAIM HAYWARD MD, MA, FACP, FACC,
== END ==
LOC: CARD 07:30
PROVIDERS: ATTEND Internal Medicine Cardiovascular Disease
DX: R06.09 Other forms of dyspnea (principal); R06.02 Shortness of breath
CPT/HCPCS: 78452; 93017; A9502